=== PATIENT | male | born 1965 | race Caucasian/White ===

== ENCOUNTER 2024-03-29 13:11 | Emergency (ER) | payer OTHER, SELFPAY ==
[2024-03-29 13:18] VITALS: BP 140/86; PULSE 84; RESP 14; TEMP 36.9; O2SAT 96; BMI 36.3
--- NOTE | 2024-03-29 13:23 | CRLHL7_ITS ---
For Patients: As a result of the Century Cures Act, medical imaging exams and procedure reports are released immediately into your electronic medical record. You may view this report before your referring provider. If you have questions, please contact your health care provider. Indication: Pain, swelling, sensation of heat and redness Technique: Ultrasound examination the left lower extremity venous system was performed. The right common femoral vein was also studied. Grayscale common grayscale compression, color Doppler, spectral Doppler and augmentation technique was utilized. Comparison: None currently available for comparison. Findings: The right common femoral vein is patent. There is no evidence of deep venous thrombosis on the left from the inguinal ligament through the calves. There is superficial venous thrombosis identified of the left greater saphenous vein extending from the proximal thigh to the knee. Impression: 1. Superficial venous thrombosis identified involving the left greater saphenous vein extending from the proximal thigh to the knee. 2. No evidence of left lower extremity deep venous thrombosis. Dictated by Jamal Staples MD @ 03/29/2024 2:08:29 PM (Electronically Signed)
--- NOTE | 2024-03-29 16:17 | ED.GENADULT ---
HPI - General Adult General Chief complaint: Extremity Pain/Injury, Lower Stated complaint: blood clot Time Seen by Provider: 03/29/24 15:03 History of Present Illness HPI narrative: This 58-year-old male comes in with pain and some redness in the medial aspect of his left leg just above the knee. He does have a history of superficial phlebitis and wonders if he may have a recurrent blood clot. He does not report any injury event. He does state that he thinks he had a pulmonary embolism a few decades ago and reports being on Lovenox and Xarelto in the past. He does not report any chest pain or shortness of breath. He arrives here with normal vital signs. Related Data Previous Rx's ?Medication ?Instructions ?Recorded apixaban 5 mg (74 tabs) tablets in See Rx Instructions PO .COMPLEX 03/29/24 a dose pack (EliquJobSlot DVT-PE Treat #74 ea 30D Start) Allergies Allergy/AdvReac Type Severity Reaction Status Date / Time No Known Drug Allergies Allergy Verified 03/29/24 13:22 Review of Systems Status of ROS: Reports: 10 or more systems reviewed and unremarkable except as noted in History and below Narrative: Constitutional: No fevers, no weight gain or loss. Eyes: No discharge. No vision changes. HENT: No congestion, no sore throat, no ear pain. Cardiovascular: No chest pain, no palpitations. Respiratory: No shortness of breath, no wheezes, no cough. Gastrointestinal: No abdominal pain, no vomiting, no diarrhea. Genitourinary: No dysuria, no hematuria. Musculoskeletal: Normal range of motion. Left leg discomfort as described above. Skin: No rashes, no pruritis. Neurological: No dizziness, weakness, sensory change, speech change. Endo/Heme/Allergies: No bruising or bleeding. No polydipsia. Pysch: no suicidality, no anxiety, no insomnia. All other systems reviewed and are negative. Exam Narrative: Exam Narrative: Constitutional: Well-developed, well-nourished, no acute distress. HEENT: Normocephalic, atraumatic. Neck: Normal range of motion. Nontender. Supple. Heart: Intact distal pulses. Lungs: No chest discomfort. No wheezes, rhonchi, or rales. Abdomen: Nontender. Back: Normal range of motion. Extremities: Normal range of motion. No injury. Left leg does have some erythema in the medial aspect of the left leg just above the knee. This is also an area where he reports tenderness. There is no obvious swelling of his left leg compared to the right. Skin: Intact. No rash. Warm. No erythema or pallor. Neurologic: No altered sensation. No weakness. Alert and oriented. Psychiatric: No suicidality. No anxiety or depression. No insomnia. Nursing notes and vitals signs are reviewed. Const: Vital Signs, click to edit/add: Vital Signs - 24 hr 03/29/24 13:18 Temperature 98.4 F Pulse Rate [Right Pulse Oximeter] 84 Respiratory Rate 14 Blood Pressure [Ri ght Upper Arm] 140/86 H Pulse Oximetry 96 Oxygen Delivery Me thod Room Air Course Vital Signs Vital signs: Initial Vital Signs Temperature 98.4 F 03/29/24 13:18 Temperature Source Temporal Artery Scan 03/29/24 13:18 Pulse Rate 84 03/29/24 13:18 Pulse Rhythm Regular 03/29/24 13:18 Pulse Strength 3+ Normal 03/29/24 13:18 Respiratory Rate 14 03/29/24 13:18 Blood Pressure 140/86 H 03/29/24 13:18 Blood Pressure Mean 104 03/29/24 13:18 Blood Pressure Position Sitting 03/29/24 13:18 Pulse Oximetry 96 03/29/24 13:18 Oxygen Delivery Method Room Air 03/29/24 13:18 Vital Signs Temperature 98.4 F 03/29/24 13:18 Pulse Rate 84 03/29/24 13:18 Respiratory Rate 14 03/29/24 13:18 Blood Pressure 140/86 H 03/29/24 13:18 Pulse Oximetry 96 03/29/24 13:18 Oxygen Delivery Method Room Air 03/29/24 13:18 Temperature 98.4 F 03/29/24 13:18 Pulse Rate 84 03/29/24 13:18 Respiratory Rate 14 03/29/24 13:18 Blood Pressure 140/86 H 03/29/24 13:18 Pulse Oximetry 96 03/29/24 13:18 Oxygen Delivery Method Room Air 03/29/24 13:18 Medical Decision Making MDM Narrative Medical decision making narrative: This patient comes in with concern of possible blood clot in his left leg. An ultrasound is obtained and does show evidence of clot in this superficial greater saphenous vein. The patient does have prior history of blood clots and is not currently on any anticoagulants. There is some past history that is suspicious for propagation of this kind of clot even though it is technically in the superficial vein. I did consult with up-to-date and anticoagulation is recommended in his situation. I did provide prescription for Eliquis. The patient is instructed to follow-up with his primary physician for ongoing management. He does not have any abnormalities in his vital signs or signs and symptoms that would suggest pulmonary embolism. I did describe signs and symptoms that would indicate a need for return and re-evaluation. Discharge Plan Discharge Clinical Impression: Phlebitis of superficial vein Patient Disposition: Home, Self-Care Condition: Stable Additional Instructions: Take medication as prescribed. Follow up with primary physician for ongoing management. Return if worsening. Prescriptions: New Eliquis DVT-PE Treat 30D Start 5 mg (74 tabs) tablets,dose pack See Rx Instructions PO .COMPLEX Qty: 74 0RF Rx Instructions: orally per package directions Stand Alone Forms: [employer] Info Instructions
== END 2024-03-29 16:59 | disposition home or self-care (01) ==
PROVIDERS: Emergency Provider Emergency Medicine Emergency Medical Services
DX: I82.812 Embolism and thrombosis of superficial veins of left lower extremity (principal)
CPT/HCPCS: 93971; 99283; 99284